=== PATIENT | female | born 1965 | race Caucasian/White ===

== ENCOUNTER → 2025-03-19 06:33 | Outpatient (REF) | payer BC, SELFPAY | LOC: RCS 06:33 | PROVIDERS: ATTENDING PHYSICIAN Physician Assistant; FAMILY PHYSICIAN Student in an Organized Health Care Education/Training Program | DX: R00.2 Palpitations (principal); R07.9 Chest pain, unspecified; R06.02 Shortness of breath; I10 Essential (primary) hypertension; Z87.09 Personal history of other diseases of the respiratory system; G47.30 Sleep apnea, unspecified | CPT/HCPCS: 93306 ==

== ENCOUNTER → 2025-03-20 06:53 | Outpatient (REF) | payer BC, SELFPAY | LOC: RCS 06:53 | PROVIDERS: ATTENDING PHYSICIAN Physician Assistant; FAMILY PHYSICIAN Student in an Organized Health Care Education/Training Program | DX: R07.9 Chest pain, unspecified (principal); R06.02 Shortness of breath; I10 Essential (primary) hypertension; Z87.09 Personal history of other diseases of the respiratory system; G47.30 Sleep apnea, unspecified | CPT/HCPCS: 78452; 93017; A9500 ==